=== PATIENT | female | born 1980 | race Caucasian/White ===

== ENCOUNTER 2019-12-10 10:01 | Outpatient (CLI) | payer MEDICARE, SELFPAY | END 2019-12-10 10:02 | disposition home or self-care (01) | LOC: ANHAUDIO 10:02 | DX: H91.93 Unspecified hearing loss, bilateral (principal) | CPT/HCPCS: 92557; 92567 ==

== ENCOUNTER 2024-04-25 09:59 | Emergency (ER) | payer MEDICARE, MEDICAID, SELFPAY ==
--- NOTE | 2024-04-25 10:05 | ED_ITS ---
HPI - URI/Sore Throat General Chief Complaint: Upper Respiratory Infection Stated Complaint: Poss ear infection/throat Time Seen by Provider: 04/25/24 10:15 Source: patient and RN notes reviewed Mode of arrival: ambulatory Limitations: no limitations History of Present Illness HPI Narrative: 44-year-old female presents with concern for left ear pain and sore throat. Reports strep throat is been going around her home. She has not taken any medications for her symptoms. She denies fever. MD elicited complaint: sore throat Related Data Home Medications ?Medication ?Instructions ?Recorded ?Confirmed ?Last Taken ?Type aripiprazole 20 mg tablet 20 mg PO DAILY 04/25/24 04/25/24 Unknown History atorvastatin 10 mg tablet 10 mg PO HS 04/25/24 04/25/24 Unknown History benzoyl peroxide 5 % topical 1 applic topical DAILY 04/25/24 04/25/24 Unknown History cleanser calcium carbonate (Calcium Antacid) 500 mg PO DAILY 04/25/24 04/25/24 Unknown History cholecalciferol (vitamin D3) 25 1,000 unit PO DAILY 04/25/24 04/25/24 Unknown History mcg (1,000 unit) tablet clindamycin phosphate 1 % lotion 1 applic topical DAILY 04/25/24 04/25/24 Unknown History escitalopram oxalate 10 mg tablet 10 mg PO DAILY 04/25/24 04/25/24 Unknown History escitalopram oxalate 20 mg tablet 20 mg PO DAILY 04/25/24 04/25/24 Unknown History famotidine 20 mg tablet 20 mg PO BID 04/25/24 04/25/24 Unknown History lamotrigine 200 mg tablet 200 mg PO BID 04/25/24 04/25/24 Unknown History oxybutynin chloride 5 mg 5 mg PO DAILY 04/25/24 04/25/24 Unknown History tablet,extended release 24 hr polyethylene glycol 3350 17 17 g PO DAILY 04/25/24 04/25/24 Unknown History gram/dose oral powder Allergies Allergy/AdvReac Type Severity Reaction Status Date / Time No Known Allergies Allergy Unverified 10/06/17 12:00 Review of Systems Review of Systems: CONSTITUTIONAL: Denies malaise, chills, sweats, or fever. EYES: Denies visual changes, redness, or discharge. ENT: Reports otalgia and sore throat. CARDIOVASCULAR: Denies chest pain, palpitations, or edema. RESPIRATORY: Denies cough. Denies dyspnea. GASTROINTESTINAL: Denies abdominal pain, nausea, vomiting, diarrhea SKIN: Denies rash or itching. MUSCULOSKELETAL: Denies myalgia. NEUROLOGIC: Denies headache. All systems reviewed & are unremarkable except as noted in HPI and below PMFSH Comments At time of signature, agree with nursing past medical, surgical, social and family history. There is no relevant family history pertinent to the presenting complaint Exam Narrative: GENERAL: Well-appearing, well-nourished, and in no acute distress. HEAD: Normocephalic EYES: PERRLA, conjunctivae clear ENT: Nares clear. Mucous membranes moist. TM pearly mckinney with dull light reflex bilaterally; no tragal tenderness. Oropharynx erythematous without lesions. T onsils enlarged and with exudate. No drooling, no hoarseness, no trismus, uvula midline. NECK: Supple. No lymphadenopathy CHEST: Clear to auscultation, breath sounds equal. No wheezing, rhonchi, rales, or stridor. No respiratory distress, speaks in full sentences. HEART: Regular rate and rhythm. No murmur heard. SKIN: Warm, dry, no rash. NEURO: Alert and oriented x3. PSYCH: Normal mood and affect Course Course Emergency Course: Patient is aware of diagnosis, understands and agrees to treatment plan. Anticipatory guidance given. Patient agrees to follow-up as directed and is aware of reasons to seek care at the emergency department. Portions of this record may have been created with voice recognition software Level of Care: Express Care Visit Vital Signs Vital signs: Reviewed. MDM - URI/Sore Throat MDM Narrative Medical decision making narrative: Differential diagnosis considered: Farmer virus, strep pharyngitis, allergic rhinitis, upper respiratory tract infection, sinusitis, rhinosinusitis, nasopharyngitis. viral pharyngitis, otitis media, otitis externa, pneumonia, bronchitis, viral cough syndrome, viral syndrome, and influenza. Exam findings show no acute concerns or changes; patient is non-toxic appearing and is in no distress. Patient is appropriate for outpatient treatment and follow-up. Lab Data Attestation: I reviewed the patient's lab results. Critical Care Time Critical Care Time Critical Care Time: No Discharge Plan Discharge Clinical Impression: Acute streptococcal pharyngitis Patient Disposition: Home, Self-Care Condition: Stable Instructions: Antibiotic Form, Strep Throat (ED) Additional Instructions: -Take the medication as prescribed. Throw away the toothbrush after 24hours of antibiotic. -Eat and drink things that are easy to swallow, like tea or soup, or popsicles to suck on. -Oral rinses such as: Salt water gargles and/or may use topical anesthetic (eg. Chloraseptic spray) or lozenges to relieve dryness or throat pain). -Take Tylenol and ibuprofen as needed for pain and fever as directed. -Frequent hand washing or hand canvas goods supervisor is one of the best ways to prevent spread of infection. -Follow up with primary care provider in 2-3 days if condition is not improving; or seek ER visit if you have trouble breathing, cannot drink enough fluids, have muffled voice, difficulty opening your mouth, or severe swelling. Patient Language: Cymro Prescriptions: New penicillin V potassium 500 mg tablet 500 mg PO Q12H 10 Days Qty: 20 0RF No Action aripiprazole 20 mg tablet 20 mg PO DAILY atorvastatin 10 mg tablet 10 mg PO HS benzoyl peroxide 5 % cleanser 1 applic TOPICAL DAILY calcium carbonate [Calcium Antacid] 200 mg calcium (500 mg) tablet,chewable 500 mg PO DAILY clindamycin phosphate 1 % lotion 1 applic TOPICAL DAILY escitalopram oxalate 10 mg tablet 10 mg PO DAILY escitalopram oxalate 20 mg tablet 20 mg PO DAILY famotidine 20 mg tablet 20 mg PO BID lamotrigine 200 mg tablet 200 mg PO BID oxybutynin chloride 5 mg tablet extended release 24hr 5 mg PO DAILY polyethylene glycol 3350 17 gram/dose powder 17 g PO DAILY cholecalciferol (vitamin D3) 25 mcg (1,000 unit) tablet 1,000 unit PO DAILY Follow-up/Referrals: UNKNOWN,DOCTOR [Primary Care Provider] - Time of Disposition: 10:31
[2024-04-25 10:07] VITALS: BP 163/91; PULSE 138; RESP 22; TEMP 37.2; O2SAT 98
[2024-04-25 10:58] LABS: EDSTREPNEGPOS1 Positive (Negative)
== END 2024-04-25 10:40 | disposition home or self-care (01) ==
PROVIDERS: Emergency Provider Nurse Practitioner
DX: J02.0 Streptococcal pharyngitis (principal); Z79.899 Other long term (current) drug therapy
CPT/HCPCS: 87880; 99213; G0463